=== PATIENT | female | born 1930 | race Caucasian/White ===

== ENCOUNTER → 2018-09-14 | Outpatient (CLI) | payer MEDICARE, OTHER ==
--- NOTE | 2018-09-14 16:27 | PCVCIMAG ---
APPROVED REPORT Study performed: 09/14/2018 14:48:15 EXAM: Comprehensive 2D, Doppler, and color-flow Echocardiogram Patient Location: Echo lab Status: routine BSA: 1.85 HR: 60 bpmBP: 118/80 mmHg Rhythm: NSR Other Information Study Quality: Technically Difficult Risk Factors: Cardiac Risk Factors: HTN Indications Edema, Pre op Hip Surgery. 2D Dimensions IVSd: 9.09 (7-11mm)LVOT Diam: 20.72 (18-24mm) LVDd: 50.75 mm PWd: 10.83 (7-11mm) LVDs: 39.78 (25-40mm) Left Atrium: 42.84 (27-40mm) Aortic Root: 34.20 mm LV Single Plane 4CH: 58.95 % Volumes Left Atrial Volume (Systole) Single Plane 4CH: 41.34 mLSingle Plane 2CH: 70.72 mL LA ESV Index: 31.00 mL/m2 Aortic Valve AoV Peak Cory.: 1.23 m/s AO Peak Gr.: 8.49 mmHgLVOT Max P.60 mmHg LVOT Max V: 0.81 m/s KIKI Vmax: 2.21 cm2 Mitral Valve E/A Ratio: 0.0 MV E Max Cory.: 0.66 m/s MV A Cory.: 0.00 m/s Pulmonary Valve PV Peak Gr.: 2.23 mmHg Tricuspid Valve TR Peak Cory.: 2.21 m/s TR Peak Gr.: 19.48 mmHg Left Ventricle The left ventricle is normal size. There is normal LV segmental wall motion. There is normal left ventricular wall thickness. Left ventricular systolic function is normal. The left ventricular ejection fraction is within the normal range. LVEF is >55%. This study is not technically sufficient to allow evaluation of the LV diastolic function. Right Ventricle The right ventricle is normal size. The right ventricular systolic function is normal. Atria The left atrium size is normal. The right atrium size is normal. Aortic Valve The Aortic valve is sclerotic. No aortic regurgitation is present. There is no aortic valvular stenosis. Mitral Valve The mitral valve is normal in structure. There is no mitral valve regurgitation noted. No evidence of mitral valve stenosis. Tricuspid Valve The tricuspid valve is normal in structure. Trace tricuspid regurgitation. Pulmonic Valve The pulmonary valve is normal in structure. Trace pulmonic regurgitation. Great Vessels The aortic root is normal in size. IVC is normal in size and collapses >50% with inspiration. Pericardium There is no pericardial effusion. <Conclusion> The left ventricle is normal size. There is normal left ventricular wall thickness. Left ventricular systolic function is normal. The right ventricle is normal size. The left atrium size is normal. The Aortic valve is sclerotic. There is no mitral valve regurgitation noted. Trace tricuspid regurgitation.
== END | disposition home or self-care (01) ==
LOC: PCVCCLINIC 14:06
PROVIDERS: ATTEND Internal Medicine Cardiovascular Disease
DX: Z01.818 Encounter for other preprocedural examination (principal); I35.0 Nonrheumatic aortic (valve) stenosis; R60.0 Localized edema; R94.31 Abnormal electrocardiogram [ECG] [EKG]; I12.9 Hypertensive chronic kidney disease with stage 1 through stage 4 chronic kidney disease, or unspecified chronic kidney disease; N18.3 Chronic kidney disease, stage 3 (moderate); E03.9 Hypothyroidism, unspecified; M19.90 Unspecified osteoarthritis, unspecified site
CPT/HCPCS: 93005; 93306; G0463